=== PATIENT | female | born 1925 | race Caucasian/White ===

== ENCOUNTER 2016-10-11 21:22 | Emergency (ER) | payer OTHER ==
[~2016-10-11 21:22] MED LIST: ASPIRIN LOW DOS81 M2 PO; ATI2I PO; ATIVAN0.5 M1 PO; ATIVAN1 MG PO; BACTRIM DS1 TAB PO; CARDIZEM CD240 MG PO; CARVEDILOL6.25 M1 PO; COREG6.25 MG PO; DICYCLOMINE10 M1 PO; DOC-Q-LACE100 MG PO; DOCUSATE100 M1 PO; DULCOLAX10 MG RC; DULERA1 AR3 IH; FLAGYL500 MG PO; HARVONI1 TAB PO; IBU600 M1 PO; LAC PO; LANTUS SOLOS100 U/M1 SQ; LOTENSIN10 MG PO; LYRICA PO; MACROBID100 MG PO; METOPROLOL SUCC50 M2 PO; MULTI-VITAMINS1 TAB PO; NEU300 PO; NEXIUM; NOR5 PO; NORCO1 TA2 PO; OMEPRAZOLE DR20 M1 PO; POLYETHYLENE GL1 PO1; PRILOSEC20 MG PO; PRINIVIL10 MG PO; SIMVASTATIN20 M1 PO; SPIRIVA18 MC1 IH; XANAX0.5 MG PO; XOPENEX HF0.045 MG/1 IH; ZANTAC 300300 MG PO; ZESTRIL40 MG PO; ZOF4 PO; [UNRECOGNIZED DRUG - REMARK]
== END 2016-10-11 22:18 | disposition left against medical advice (07) ==
LOC: ED 21:22
DX: Z53.21 Procedure and treatment not carried out due to patient leaving prior to being seen by health care provider (principal)

== ENCOUNTER 2016-10-26 07:20 | Inpatient (IN) | payer OTHER ==
[~2016-10-26] VITALS: Ht 154.9 cm; Wt 53.5 kg
--- NOTE | 2016-10-26 07:39 | NUR ---
DR WU AT BEDSIDE, PT C/O STOMACH PAIN SINCE 5 AM, HX OF SAME AND HX OF ANXIETY
--- NOTE | 2016-10-26 07:55 | NUR ---
20 G SL RIGHT ARM, LABS DRAWN AND SENT TO LAB
[2016-10-26 08:21] LABS: microscopic required? YES; urine erythrocyte TRACE (NEGATIVE)
[2016-10-26 08:29] LABS: BASOPHIL % 0.6 % (0-2); PLATELET COUNT 205 x10^3mcL (130-400); RED CELL DISTRIBUTION WIDTH 15.4 % (11.5-14.5)
[2016-10-26 08:33] LABS: AMPHETAMINE QUAL UR NONE DETECTED (NEG <=1000)
[2016-10-26 08:43] LABS: CALCIUM 9.1 mg/dL (8.5-10.1); CARBON DIOXIDE 24.1 mmol/L (21-32); CHLORIDE SERUM 106 mmol/L (98-107); CREATININE SERUM 1.1 mg/dL (0.6-1.0); GLUCOSE SERUM 105 mg/dL (74-106); POTASSIUM SERUM 4.8 mmol/L (3.5-5.1); SODIUM SERUM 140 mmol/L (136-145)
[2016-10-26 08:56] LABS: ALBUMIN 3.6 g/dL (3.4-5.0); ALKALINE PHOSPHATASE 120 U/L (46-116); ALT/SGPT 14 U/L (14-59); AMYLASE 51 U/L (25-115); AST/SGOT 19 U/L (15-37); BILIRUBIN TOTAL 0.7 mg/dL (0.20-1.00); LIPASE 110 IU/L (73-393); T4(THYROXINE) 7.6 ug/dL (4.7-13.3); TOTAL PROTEIN, SERUM 7.7 g/dL (6.4-8.2)
[2016-10-26 09:00] LABS: CHOLESTEROL 256 mg/dL (<200); HDL CHOLESTEROL 63 mg/dL (40-60)
[2016-10-26 11:40] LABS: T3 TOTAL 1.04 ng/mL
[2016-10-26 11:43] LABS: CHOLESTEROL/HDL RATIO 4.1
--- NOTE | 2016-10-26 11:43 | NUR ---
PT AMBULATED FROM GURNEY TO BED WITH STEADY GAIT. PT IS AAOX3 CAN BE FORGETFUL AT TIMES. ABLE TO COMMUNICATE CLEARLY AND FOLLOW VERBAL ORDES. FOUND PT ON RA NO SIGNS OF SOB OR ACUTE DISTRESS. LUNG SOUND DIMINISH. ON TELE #7 SB HR 56 PT IS ASYMPTOMATIC AT THIS TIME. PT REPORTS DIZZINESS. DENIES CHEST PAIN. PT REPORT LAST BM 10/20/16. BS ACITVE AND ABD ROUND AND FLAT. PT REPORT INTERMITTEN EPIGASTRIC PAIN /10, WILL MEDICATE PER EMAR. SKIN INTACT. NS INFUSE AT 50ML/HR TO RFA. IV SITE WNL. ORIENTED PT AND SON TO ROOM AND CALL LIGHT. BED AT LOW AND CALL LIGHT WITHIN REACH.
[2016-10-26 11:55] LABS: FREE T4 0.99 ng/dL (0.76-1.46); T4(THYROXINE) 8.2 ug/dL (4.7-13.3)
--- NOTE | 2016-10-26 12:00 | NUR ---
BP 202/78 MAP 119 AND HR 56 PT C/O OF DIZZINESS. PAGING DR JONES. DR. REYES IS AWARE. AWAITING FOR NEW ORDERS.
[2016-10-26 12:26] VITALS: BP 193/112
--- NOTE | 2016-10-26 12:57 | NUR ---
PT AMBULATING DOWN HALLWAY WITH STEADY GAIT WITH SON BY SIDE.
--- NOTE | 2016-10-26 13:41 | NUR ---
BLADDER SCA SHOWS 358 RESIDUAL URINE IN BLADDER.
[2016-10-26 13:43] VITALS: BP 203/65
--- NOTE | 2016-10-26 13:44 | NUR ---
DR. JONES IS AWARE OF BLOOD PRESSURE 203/65 MAP 92. AWAITING FOR NEW ORDERS. PT IS AAOX4 ABLE TO FOLLOW VERBAL COMMANDS. BED AT LOW AND CALL LIGHT WITHIN REACH. SON AT BEDSIDE.
--- NOTE | 2016-10-26 14:50 | NUR ---
[facility] DR. JONES TO REMIND SHEEHAN CATH ORDER PER [facility] TEXT IS SENT. AWAITING FOR NEW ORDERS.
--- NOTE | 2016-10-26 15:34 | NUR ---
SHEEHAN INSERTED, 300ML OF CLEAR YELLOW OUTPUT. PT TOLERATED PROCEDURE WELL. BED AT LOW AND CALL LIGHT WITHIN REACH.
--- NOTE | 2016-10-26 15:45 | NUR ---
PT IS AAOX4 ABLE TO COMMUNICATE C/O DIZZINESS. BP 216/81 MAP [address] JONES IS MADE AWARE. WILL MEDICATE PER EMAR.
--- NOTE | 2016-10-26 16:45 | NUR ---
PT'S SATUS CHANGED FROM AAOX3 TO ALOC. SUDDENLY BECAME COMBATIVE AND AGGRESSIVE TRYING TO PUSH AND SHOVEL FAMILY AND STAFF. BLOOD SUGAR WAS CHECEKED 84. TELE #[address] HR [address] JONES WAS NOTIFIY AND IS AWARE. PT WAS MEDICATE PER EMAR. PT IS NOW CALM RESTING IN BED WITH EVEN CHEST RISE WITH A BLANK STARES. FAMILY AT BEDSIDE. BED AT LOW AND CALL LIGHT WITHIN REACH.
[2016-10-26 16:49] VITALS: BP 180/71
[2016-10-26 18:08] VITALS: BP 149/70
--- NOTE | 2016-10-26 19:01 | NUR ---
PT TALKING TO JS AT BEDSIDE. PT IS CALM AND IS AAOX4 ABLE TO COMMUNICATE AND FOLLOW VERBAL ORDERS. PT DENIES ABD PAIN AT THIS TIME. ON RA NO SIGNS OF SOB OR ACUTE DISTRESS. RFA IV SITE WNL. WILL ENDORSE ALL CARE TO ONCOMING RN. BED AT LOW AND CALL LIGHT WITHIN REACH.
--- NOTE | 2016-10-26 19:25 | NUR ---
RECEIVED PT AMBULATING ON THE HALLWAY WITH FAMILY AAOX3 NO ACUTE DISTRESS NOTED, TELE NUMBER 7 SHOWS NSR , PIV INTACT INFUSING WELL , SHEEHAN TO GRAVITY DRAININGWELL , PALE YELLOW URINE.
[2016-10-26 22:01] VITALS: BP 141/77
--- NOTE | 2016-10-27 06:10 | NUR ---
PT'S IN BED WITH EYES CLOSED , NO ACUTE DISTRESS NOTED, ALL DUE MEDS GIVEN NO REACTION NOTED, TELE NSR , PIV INTACT INFUSING WELL , SHEEHAN TO GRAVITY DRAINING WELL.
[2016-10-27 06:17] VITALS: BP 145/69
[2016-10-27 06:17] LABS: BASOPHIL % 0.3 % (0-2); PLATELET COUNT 176 x10^3mcL (130-400)
[2016-10-27 06:39] LABS: CALCIUM 8.5 mg/dL (8.5-10.1); CARBON DIOXIDE 21.6 mmol/L (21-32); CHLORIDE SERUM 110 mmol/L (98-107); GLUCOSE SERUM 95 mg/dL (74-106); PHOSPHOROUS 3.6 mg/dL (2.5-4.9); POTASSIUM SERUM 4.2 mmol/L (3.5-5.1); SODIUM SERUM 143 mmol/L (136-145)
[2016-10-27 06:46] LABS: RED CELL DISTRIBUTION WIDTH 15.4 % (11.5-14.5)
--- NOTE | 2016-10-27 07:30 | NUR ---
PATIENT IS IN BED AWAKE ALERT ROMANIAN SPEAKING. IVF INFUSING WELL, SITE PATENT. TELE 2 NSR. PATIENT DENIES ANY ABD PAIN OR N/V/D. SHEEHAN CATH DRAINING CLEAR YELLOW URINE. LUNGS CLEAR ON ROOM AIR. ABD SOFT BOWEL SOUNDS ACTIVE. MOVES ALL EXTREM WELL IN BED. SCD'S IN PLACE. NO ACUTE DISTRESS NOTED. WILL CONTINUE TO MONITOR.
--- NOTE | 2016-10-27 08:20 | NUR ---
DR PEREZ AND MEDICAL TEAM INTO SEE PATIENT AND DISCUSS PLAN OF CARE TO INCLUDE D/C OF SHEEHAN CATH TO SEE IT PATIENT IS ABLE TO VOID ON HER OWN.
--- NOTE | 2016-10-27 08:46 | NUR ---
SHEEHAN CATH DC'D AT THIS TIME ORDERED. PATIENT INSTRUCTED TO USE CALL LIGHT FOR ASSIT TOTHE BATHROOM TO VOID.
--- NOTE | 2016-10-27 08:49 | NUR ---
PATIENT C/O FEELING ANXIOUS. XANAX PO GIVEN ORDERED. WILL MONITOR FOR EFFECT.
--- NOTE | 2016-10-27 11:15 | NUR ---
PATIENT'S PLAN OF CARE WAS DISCUSSED AND REVIEWED WITH WELDER HELPER:JESI CARRERA. I HAVE REVIEWED THE DATA COLLECTION BY WELDER HELPER (NAME):JESI CARRERA. ENTERED ON (DATE/TIME):10/27/16. I CONCUR WITH THE DATA AND ANY EXCEPTIONS OR COMMENTS ARE LISTED BELOW:'
--- NOTE | 2016-10-27 13:32 | NUR ---
DR JONES NOTIFIED THAT PATIENT HAS NOT VOIDED SINCE F/C WAS DC'D AT 0845 AND OF QUESTIONABLE NO BM IN 7 DAYS. WILL CONTINUE TO MONITOR PT.
[2016-10-27 14:34] VITALS: BP 147/63
--- NOTE | 2016-10-27 14:52 | NUR ---
PATIENT ASSISTED UP TO BSC. PATIENT VOIDED AND HAD ONE SMALL BM AT THIS TIME. SITTING UP ON THE SIDE OF THE BED WITH FAMILY MEMBER AT BEDSIDE.
--- NOTE | 2016-10-27 15:03 | NUR ---
PATIENT'S PLAN OF CARE WAS DISCUSSED AND REVIEWED WITH TOOL MACHINE SETUP OPERATOR:JESI CARRERA. I HAVE REVIEWED THE DATA COLLECTION BY TOOL MACHINE SETUP OPERATOR (NAME):JESI CARRERA. ENTERED ON (DATE/TIME):10/27/16. I CONCUR WITH THE DATA AND ANY EXCEPTIONS OR COMMENTS ARE LISTED BELOW:
[2016-10-27] MEDS ORDERED: GOOD NEIGHBOR P20 M2 PO (17:42)
[2016-10-27] MEDS ORDERED: ADULT LOW DOSE81 MG PO (17:44)
[2016-10-27 17:45] VITALS: BP 147/63
--- NOTE | 2016-10-27 17:51 | NUR ---
PATIENT SITTING UP ON THE SIDE OF THE BED EATING DINNER TRAY. DAUGHTER AT BEDSIDE. PATIENT HAS VOIDED S/P F/C BEING DC'D. MEDICATED WITH ATIVAN IV BY ALEAH ROCHA FOR PATIENT'S C/O OF ANXIETY ORDERED. PATIENT HAS HAD GOOD RELIEF. PATIENT TO D/C HOME THIS EVENING. CONDITION APPEARS STABLE.
--- NOTE | 2016-10-27 19:26 | NUR ---
PATIENT READY FOR D/C HOME. HL AND TELE DC'D. DISCHARGE INSTRUCTIONS GIVEN. PERSONAL BELONGINGS LIST SIGNED. CONDITON APPEARS STABLE AT THIS TIME.
== END 2016-10-27 19:38 | disposition home or self-care (01) | DRG 698 ==
LOC: ED 07:20 → DU 10:29
PROVIDERS: Emergency Medicine; ADMIT Family Medicine
DX: N13.9 Obstructive and reflux uropathy, unspecified (principal); I50.43 Acute on chronic combined systolic (congestive) and diastolic (congestive) heart failure; I12.9 Hypertensive chronic kidney disease with stage 1 through stage 4 chronic kidney disease, or unspecified chronic kidney disease; N18.3 Chronic kidney disease, stage 3 (moderate); K59.09 Other constipation; F41.9 Anxiety disorder, unspecified; Z98.61 Coronary angioplasty status; Z68.22 Body mass index [BMI] 22.0-22.9, adult; Z85.43 Personal history of malignant neoplasm of ovary; I25.10 Atherosclerotic heart disease of native coronary artery without angina pectoris
CPT/HCPCS: 80307; 82962; 83880; 84439; J0360; J2060; J7030; Q0092